=== PATIENT | female | born 1990 | race Caucasian/White ===

== ENCOUNTER → 2018-05-11 | Outpatient (CLI) | payer OTHER, BC ==
[2016-10-23 01:00] VITALS: BMI 25.8
[~2018-05-11] MED LIST: ESCI20TA38 PO; IBUP800T37 PO; PREN-127 PO
== END ==
LOC: LAB 14:37
PROVIDERS: ATTEND Student in an Organized Health Care Education/Training Program
DX: O20.0 Threatened abortion (principal)
CPT/HCPCS: 36415; 84702

== ENCOUNTER → 2018-05-13 | Outpatient (CLI) | payer OTHER, BC ==
[2016-10-23 01:00] VITALS: BMI 25.8
== END ==
LOC: LAB 12:03
PROVIDERS: ATTEND Student in an Organized Health Care Education/Training Program
DX: O20.0 Threatened abortion (principal)
CPT/HCPCS: 36415; 84702

== ENCOUNTER → 2018-06-06 | Outpatient (CLI) | payer OTHER, BC ==
[2016-10-23 01:00] VITALS: BMI 25.8
[~2018-06-06] MED LIST changes: +FLU60SYR36 IM; +ONDA4TAB97 PO
[2018-06-06 10:22] LABS: PLATELET COUNT, AUTOMATED 185 K/uL (150-450)
== END ==
LOC: LAB 08:04
PROVIDERS: ATTEND Student in an Organized Health Care Education/Training Program
DX: Z34.81 Encounter for supervision of other normal pregnancy, first trimester (principal)
CPT/HCPCS: 36415; 81001; 85025; 86592; 86703; 86762; 86850; 86900; 86901; 87088; 87340

== ENCOUNTER → 2018-06-23 | Outpatient (CLI) | payer OTHER, BC ==
[2016-10-23 01:00] VITALS: BMI 25.8
== END ==
LOC: LAB 08:22
PROVIDERS: ATTEND Student in an Organized Health Care Education/Training Program
DX: Z34.91 Encounter for supervision of normal pregnancy, unspecified, first trimester (principal)
CPT/HCPCS: 87491; 87591

== ENCOUNTER 2018-07-24 16:53 | Emergency (ER) | payer OTHER, BC ==
[2016-10-23 01:00] VITALS: Wt 77.1 kg
[2018-07-24 17:28] VITALS: BP 112/75
--- NOTE | 2018-07-24 18:23 | ER Report ---
History and Physical Time Seen By MD: 17:05 Hx. of Stated Complaint: Pt. 14.5 weeks . Today noticed brown spotting with cramping. Cramping with pain /10. Dr. Chantal PAUL HPI/ROS CHIEF COMPLAINT: bleeding, cramping HISTORY OF PRESENT ILLNESS: 28-year-old female at 14 weeks presents with lower abdominal cramping and spotting. She has not gone through 4 pads. Bleeding is reddish and brownish. She has no change in urination. She has had no recent trauma, falls, injuries. Pain is mild and intermittent. She has no chest pain, trouble breathing, denies tobacco, alcohol, drugs REVIEW OF SYSTEMS: Constitutional: No fever, no chills. Eyes: No discharge. ENT: No sore throat. Cardiovascular: No chest pain, no palpitations. Respiratory: No cough, no shortness of breath. Gastrointestinal: above Genitourinary: no dysuria Musculoskeletal: No back pain. Skin: No rashes. Neurological: No headache. Remainder of the 14 system rev: Yes Allergies: Coded Allergies: No Known Drug Allergies (Unverified , 07/24/18) Home Meds Active Scripts Ibuprofen (IBUPROFEN) 800 Mg Tablet, 800 MG PO Q8H, #30 TAB 0 Refills Prov:JACQUELINE IRWIN MD 10/25/16 Reported Medications Escitalopram Oxalate (LEXAPRO) 20 Mg Tablet, 5 MG PO QDAY, TAB 03/08/18 Vits W-Ca,Fe,Fa(<1MG) ( VITAMINS) 1 Each Tablet, 1 EACH PO DAILY, TAB 10/23/16 Discontinued Scripts Ondansetron Hcl (ZOFRAN) 4 Mg Tablet, 4 MG PO Q6H PRN for NAUSEA/VOMITING, #15 TAB 1 Refill Prov:LATRICE LLAMAS DO 06/07/18 Reviewed Nurses Notes: Yes Hx Smoking: No Smoking Status: Never Smoker Exposure to Second Hand Smoke?: No Constitutional Vital Sign - Last 24 Hours 07/24/18 07/24/18 07/24/18 07/24/18 17:04 17:08 17:23 17:28 Temp 98.1 Pulse 88 ? Resp 16 B/P (MAP) 127/76 112/75 (87) Pulse Ox 97 O2 Delivery Room Air 07/24/18 07/24/18 17:38 17:53 Pulse 81 ??? Pulse Ox 92 Physical Exam General Appearance: The patient is alert, has no immediate need for airway protection and no current signs of toxicity. [ ] Eyes: Pupils equal and round no injection. Respiratory: Chest is non tender, lungs are clear to auscultation. Cardiac: regular rate and rhythm no m/r/g Gastrointestinal: Abdomen is soft and non tender, no masses, bowel sounds normal. Musculoskeletal: Extremities have full range of motion and are non tender. Skin: No rashes or lesions. DIFFERENTIAL DIAGNOSIS: After history and physical exam differential diagnosis was considered for placenta previa, abruption, threatened miscarriage or other emergent etiology Medical Decision Making Data Points Laboratory Hematology Test 07/24/18 17:40 Urine Color Colorless Urine Clarity Clear Urine pH 7.0 pH (4.8-9.5) Urine Specific [place] 1.002 Urine Protein Negative mg/dL (NEGATIVE) Urine Glucose (UA) Negative mg/dL (NEGATIVE) Urine Ketones Trace mg/dL (NEGATIVE) Urine Blood Negative (NEGATIVE) Urine Nitrite Negative (NEGATIVE) Urine Bilirubin Negative (NEGATIVE) Urine Urobilinogen Negative mg/dL (0.2-1.9) Urine Leukocyte Esterase Negative (NEGATIVE) Urine RBC <1 /HPF (0-2/HPF) Urine WBC <1 /HPF (0-5/HPF) Urine Squamous Epithelial Cells None /LPF (</=FEW) Urine Bacteria Negative /HPF (NONE-FEW) Urine Mucus None /HPF (NONE-FEW) Chemistry Test 07/24/18 17:40 Urine Color Colorless Urine Clarity Clear Urine pH 7.0 pH (4.8-9.5) Urine Specific [place] 1.002 Urine Protein Negative mg/dL (NEGATIVE) Urine Glucose (UA) Negative mg/dL (NEGATIVE) Urine Ketones Trace mg/dL (NEGATIVE) Urine Blood Negative (NEGATIVE) Urine Nitrite Negative (NEGATIVE) Urine Bilirubin Negative (NEGATIVE) Urine Urobilinogen Negative mg/dL (0.2-1.9) Urine Leukocyte Esterase Negative (NEGATIVE) Urine RBC <1 /HPF (0-2/HPF) Urine WBC <1 /HPF (0-5/HPF) Urine Squamous Epithelial Cells None /LPF (</=FEW) Urine Bacteria Negative /HPF (NONE-FEW) Urine Mucus None /HPF (NONE-FEW) Urinalysis Test 07/24/18 17:40 Urine Color Colorless Urine Clarity Clear Urine pH 7.0 pH (4.8-9.5) Urine Specific [place] 1.002 Urine Protein Negative mg/dL (NEGATIVE) Urine Glucose (UA) Negative mg/dL (NEGATIVE) Urine Ketones Trace mg/dL (NEGATIVE) Urine Blood Negative (NEGATIVE) Urine Nitrite Negative (NEGATIVE) Urine Bilirubin Negative (NEGATIVE) Urine Urobilinogen Negative mg/dL (0.2-1.9) Urine Leukocyte Esterase Negative (NEGATIVE) Urine RBC <1 /HPF (0-2/HPF) Urine WBC <1 /HPF (0-5/HPF) Urine Squamous Epithelial Cells None /LPF (</=FEW) Urine Bacteria Negative /HPF (NONE-FEW) Urine Mucus None /HPF (NONE-FEW) ED Course/Re-evaluation ED Course I took call from patient's OB who notes second trimester bleeding and requests that she have feel heart tones done in emergency department she specifically does not want pelvic exam or pelvic ultrasound to be done here. I reviewed patient's ABO status. She is be positive and does not require wrote him. Patient is very comfortable and hemodynamically stable. heart rate 155 on my ultrasound with normal movement. She does not have evidence of UTI. She is very comfortable for discharge. Of note, she is tearful though denies suicidal and does not want other resources. Her primary and OB or following her closely for this. Decision to Disposition Date: Jul 24, 2018 Decision to Disposition Time: 18:25 Depart Departure Latest Vital Signs Vital Signs Date Time Temp Pulse Resp B/P (MAP) Pulse Ox O2 Delivery O2 Flow Rate FiO2 07/24/18 17:53 ??? 07/24/18 17:38 92 07/24/18 17:28 112/75 (87) 07/24/18 17:04 98.1 16 Room Air Impression: Primary Impression: Second trimester bleeding Condition: Improved Disposition: HOME OR SELF-CARE Referrals: LATRICE LLAMAS DO (PCP) 2 Days Additional Instructions: Physical we discussed, it is important that you follow-up with your OB doctor this week for reevaluation giving your bleeding in . You will need further imaging to evaluate the placenta and rule out other causes. Please return immediately for concerning pain, significant bleeding, lightheadedness, or any concerns. DANILO SHERMAN MD Jul 24, 2018 18:23
== END 2018-07-24 18:30 | disposition home or self-care (01) ==
LOC: ER 17:33
DX: O20.9 Hemorrhage in early pregnancy, unspecified (principal); Z3A.14 14 weeks gestation of pregnancy
CPT/HCPCS: 81001; 99284

== ENCOUNTER → 2018-08-22 | Outpatient (CLI) | payer OTHER, BC ==
[2016-10-23 01:00] VITALS: BMI 25.8
[~2018-08-22] MED LIST changes: +ACYC5CRE6 TP
--- NOTE | 2018-08-22 13:12 | RADIOLOGY IMAGING REPORT ---
FACILITY: PATIENT NAME: Nirmala Durán : 1990 MR: [id number] V: [id number] EXAM DATE: [id number] ORDERING PHYSICIAN: KAT PIZANO TECHNOLOGIST: Location: [facility] - [place], [place] Patient: Nirmala Durán : 1990 Visit/Account:[id number] Date of Sevice: 08/22/2018 EXAMINATION: Ultrasound transabdominal OB > 14 weeks with anatomic evaluation HISTORY: , multigravida in 2nd trimester. Anatomical survey. LMP 04/13/2018. COMPARISON: None. TECHNIQUE: Transabdominal imaging was performed for assessment of the fetus and maternal pelvic structures. T ransvaginal imaging was not performed. FINDINGS: Placenta: Anterior without previa. Uterus: Gravid, otherwise normal Cervix: Long and closed. Maternal Ovaries: Not visualized. Maternal and other adnexa findings: Negative. Intrauterine gestations: One. presentation: Variable heart rate: Normal and regular at 156 bpm Amniotic fluid index: 14.2 cm Largest amniotic fluid pocket: 5.0 cm Gestational Parameters: BPD: 4.3 cm 19 weeks/ 1 days, 67th percentile HC: 16.3 cm 19 weeks/ 1 days, 60th percentile AC: 13.9 cm 19 weeks/ 3 days, 67th percentile FL: 3.1 cm 19 weeks/ 5 days, 77th percentile Average ultrasound age (AUA): 19 weeks/3 days, OLIVA 01/13/2019 Estimated gestational age by LMP: 18 weeks/5 days, OLIVA 01/18/2019 Estimated weight (EFW): 292 grams +/- 43 grams EFW for LMP: 85th percentile Anatomic Survey: Intracranial structures, 4-chamber heart, stomach, kidneys, urinary bladder, spine, 3-vessel cord and cord insertion are unremarkable. Two upper and two lower extremities visualized. Cardiac ventricula r outflow tracts, palate and lips are unremarkable in appearance. IMPRESSION: 1. Single live intrauterine gestation with average ultrasound age of 19 weeks 3 days, concordant wit h the given LMP dates of 18 weeks 5 days. OLIVA is 01/18/2019. 2. Anterior placenta without previa. 3. Unremarkable anatomic survey. Report Dictated By: Nelida Quintanilla MD at 08/22/2018 1:01 PM Report E-Signed By: Nelida Quintanilla MD at 08/22/2018 1:08 PM WSN:[id number]
== END ==
LOC: RAD 09:43
PROVIDERS: ATTEND Advanced Practice Midwife
DX: Z34.82 Encounter for supervision of other normal pregnancy, second trimester (principal); Z3A.19 19 weeks gestation of pregnancy

== ENCOUNTER → 2018-10-14 | Outpatient (CLI) | payer OTHER, BC ==
[2016-10-23 01:00] VITALS: BMI 25.8
[~2018-10-14] MED LIST changes: +DIPH0.5S2 IM
[2018-10-14 09:40] LABS: PLATELET COUNT, AUTOMATED 150 K/uL (150-450)
== END ==
LOC: LAB 08:36
PROVIDERS: ATTEND Advanced Practice Midwife
DX: Z34.92 Encounter for supervision of normal pregnancy, unspecified, second trimester (principal)
CPT/HCPCS: 36415; 82950; 85025

== ENCOUNTER → 2018-10-17 | Outpatient (CLI) | payer OTHER, BC ==
[2016-10-23 01:00] VITALS: BMI 25.8
== END ==
LOC: LAB 16:16
PROVIDERS: ATTEND Advanced Practice Midwife
DX: O26.892 Other specified pregnancy related conditions, second trimester (principal)
CPT/HCPCS: 84112

== ENCOUNTER → 2018-11-17 | Outpatient (CLI) | payer OTHER, BC ==
[2016-10-23 01:00] VITALS: BMI 25.8
--- NOTE | 2018-11-17 12:41 | RADIOLOGY IMAGING REPORT ---
FACILITY: [facility] PATIENT NAME: Nirmala Durán : 1990 MR: [id number] V: [id number] EXAM DATE: ORDERING PHYSICIAN: KAT PIZANO TECHNOLOGIST: Location: [facility] - [place] Patient: Nirmala Durán : 1990 Visit/Account:[id number] Date of Sevice: 11/17/2018 ADDENDUM #1 ADDENDUM: These note the findings should read: GREER: 15.3 cm MVP: 5.0 cm Report Dictated By: Moisés Rendon DO at 11/18/2018 1:55 PM Report E-Signed By: Moisés Rendon DO at 11/18/2018 1:56 PM ORIGINAL REPORT Limited OB ultrasound, 3-D imaging was performed by the technologist according to protocols developed by the radiologists and the facility radiology staff. T[employer] Puller images are stored on PACS. Indication: Size greater than dates Comparison: None available FINDINGS: Intrauterine gestations: one presentation: Vertex heart rate: 146 bpm Amniotic fluid index: 5 cm Largest amniotic fluid pocket 15.2 cm Placenta: Anterior without previa Uterus: gravid, otherwise normal Gestational Parameters: BPD: 7.9 cm 31 weeks, 6 days, 59th percentile HC: 30.1 cm 33 weeks, 4 days, 77th percentile AC: 27.5 cm 31 weeks, 5 days, 63rd percentile FL: 6.2 cm 32 weeks, 3 days, 69th percentile Average ultrasound age (AUA): 32 weeks, 3 days OLIVA: 01/09/2019 based on AUA Estimated weight (EFW): 1891 g, +/- 277 g EFW for AUA: 69th percentile Anatomic survey: Not interrogated IMPRESSION: 1. Single live intrauterine gestation; estimated ultrasound age 32 weeks, 3 days 2. Estimated weight 1891 g, 69th percentile Report Dictated By: Moisés Rendon DO at 11/17/2018 12:23 PM Report E-Signed By: Moisés Rendon DO at 11/17/2018 12:34 PM WSN:[id number]
== END ==
LOC: RAD 10:53
PROVIDERS: ATTEND Advanced Practice Midwife
DX: O26.843 Uterine size-date discrepancy, third trimester (principal); Z3A.32 32 weeks gestation of pregnancy

== ENCOUNTER → 2018-12-05 | Outpatient (CLI) | payer OTHER, BC ==
[2016-10-23 01:00] VITALS: BMI 25.8
== END ==
LOC: LAB 14:20
PROVIDERS: ATTEND Obstetrics & Gynecology
DX: Z34.93 Encounter for supervision of normal pregnancy, unspecified, third trimester (principal); L29.9 Pruritus, unspecified

== ENCOUNTER → 2018-12-05 | Outpatient (CLI) | payer OTHER, BC ==
[2016-10-23 01:00] VITALS: BMI 25.8
== END ==
LOC: LAB 14:15
PROVIDERS: ATTEND Obstetrics & Gynecology
DX: Z34.93 Encounter for supervision of normal pregnancy, unspecified, third trimester (principal); L29.9 Pruritus, unspecified
CPT/HCPCS: 36415; 82040; 82239; 82247; 82310; 82374; 82435; 82565; 82947; 84075; 84132; 84155; 84295; 84450; 84460; 84520

== ENCOUNTER → 2018-12-12 | Outpatient (CLI) | payer OTHER, BC ==
[2016-10-23 01:00] VITALS: BMI 25.8
[2018-12-12 16:28] LABS: PLATELET COUNT, AUTOMATED 157 K/uL (150-450)
== END ==
LOC: LAB 15:51
PROVIDERS: ATTEND Advanced Practice Midwife
DX: R53.83 Other fatigue (principal)
CPT/HCPCS: 36415; 85025

== ENCOUNTER → 2018-12-21 | Outpatient (CLI) | payer OTHER, BC ==
[2016-10-23 01:00] VITALS: BMI 25.8
== END ==
LOC: LAB 15:14
PROVIDERS: ATTEND Obstetrics & Gynecology
DX: Z34.93 Encounter for supervision of normal pregnancy, unspecified, third trimester (principal); B95.1 Streptococcus, group B, as the cause of diseases classified elsewhere
CPT/HCPCS: 87077; 87081; 87186